=== PATIENT | female | born 1940 | race Caucasian/White ===

== ENCOUNTER 2022-01-04 20:17 | Emergency (ER) | payer MEDICARE ==
--- NOTE | 2022-01-04 20:56 | ERPHSYRPT ---
- History of Present Illness Time Seen by Provider: 01/04/22 20:45 Source: patient Exam Limitations: no limitations Patient Subjective Stated Complaint: Pt states "I have had a cough since the middle of last week but it has gotten better. It also [place] to pee and I am peei ng more than usual" Triage Nursing Assessment: Pt amubulatory to cot by self, pt c/o productive cough since last week as well as painful urination that started tuesday, lung sounds clear in lower lobes anteriorly and posteriorly, wheezes noted in upper lobes anteriorly and posteriorly, pt is afebrile, pt denies sob, chest pain, headache, n/v/d at this time, pt coughing up clear sputum in room Physician History: This is an 81-year-old white female who is a patient of Dr. Casillas. She has a history of hypertension and last week she noticed coughing episodes that were similar to the past when she has had walking pneumonia. She was coughing up yellowish sputum. That seemed to improve. Then, approximately 3 days ago she noticed some dysuria. She had fever last week but has not had any fever in the last few days. She has had no nausea or vomiting. She does not have chest pain. She has no abdominal pain. Timing/Duration: week(s) Cough Quality/Degree: mild, productive cough Possible Cause: occasional episodes Modifying Factors: Improves With: coughing Associated Symptoms: cough, No chest pain/soreness, No shortness of breath Allergies/Adverse Reactions: diphenhydramine [From Benadryl] Allergy (Verified 01/04/22 20:28) hydrocodone bitartrate [From Vicodin] Allergy (Verified 01/04/22 20:28) meperidine HCl [From Demerol] Allergy (Verified 01/04/22 20:28) Home Medications: Enalapril Maleate [Vasotec] 20 mg PO BID 10/25/12 [History] Furosemide 20 mg [Lasix 20 mg] 20 mg PO DAILY PRN PRN 10/25/12 [History] Metoprolol Succinate 50 mg [Toprol Xl 50 MG] 50 mg PO DAILY 10/25/12 [History] ALPRAZolam [Alprazolam] 0.5 mg PO DAILY 01/04/22 [History] Aspirin EC 81 mg [Ecotrin 81 mg] 81 mg PO DAILY 01/04/22 [History] Calcium Carbonate/Vitamin D3 [Calcium 600 mg-D3 10 Mcg Sfgl] 1 cap PO DAILY 01/04/22 [History] Clopidogrel Bisulfate [Clopidogrel] 75 mg PO DAILY 01/04/22 [History] Esomeprazole Magnesium 40 mg PO DAILY 01/04/22 [History] Hx Tetanus, Diphtheria Vaccination/Date Given: Yes Hx Influenza Vaccination/Date Given: No Hx Pneumococcal Vaccination/Date Given: No Immunizations Up to Date: Yes Travel Risk - International Travel Have you traveled outside of the country in past 3 weeks: No - Coronavirus Screening Are you exhibiting any of the following symptoms?: No Close contact with a COVID-19 positive Pt in past 14-21 Days: No - Vaccine Status Have you recieved a Covid-19 vaccination: Yes Conservation Scientist: Moderna - Vaccination Dates Date of 2cond Vaccination (if applicable): 03/27/2021 - Review of Systems Constitutional: No Symptoms Eyes: No Symptoms Ears, Nose, & Throat: No Symptoms Respiratory: Cough Cardiac: No Symptoms Abdominal/Gastrointestinal: No Symptoms Genitourinary Symptoms: Dysuria Musculoskeletal: No Symptoms Skin: No Symptoms Neurological: No Symptoms Psychological: No Symptoms Endocrine: No Symptoms Hematologic/Lymphatic: No Symptoms Immunological/Allergic: No Symptoms All Other Systems: Reviewed and Negative - Past Medical History Pertinent Past Medical History: Yes Neurological History: Stroke ENT History: No Pertinent History Cardiac History: Coronary Artery Disease, High Cholesterol, Hypertension Respiratory History: No Pertinent History Endocrine Medical History: No Pertinent History Musculoskeletal History: No Pertinent History GI Medical History: No Pertinent History History: No Pertinent History Psycho-Social History: No Pertinent History Female Reproductive Disorders: Breast Cancer - Past Surgical History Past Surgical History: Yes Cardiac: CABG Respiratory: No Pertinent History Gastrointestinal: Cholecystectomy Genitourinary: No Pertinent History Female Surgical History: Hysterectomy, Lumpectomy, Other Other Surgical History: lump removed from r breast - Social History Smoking Status: Never smoker Exposure to second hand smoke: No Drug Use: none Patient Lives Alone: Yes - Nursing Vital Signs Nursing Vital Signs: Initial Vital Signs Temperature 97.7 F 01/04/22 20:29 Pulse Rate 64 01/04/22 20:29 Respiratory Rate 16 01/04/22 20:29 Blood Pressure 176/70 01/04/22 20:29 O2 Sat by Pulse Oximetry 98 05/23/22 20:29 Pain Scale Pain Intensity 0 - Physical Exam General Appearance: no apparent distress, alert, anxiety Eye Exam: PERRL/EOMI, eyes nml inspection Ears, Nose, Throat Exam: normal ENT inspection, moist mucous membranes Neck Exam: normal inspection, non-tender, supple, full range of motion Respiratory Exam: normal breath sounds, lungs clear, airway intact, No chest tenderness, No respiratory distress Cardiovascular Exam: regular rate/rhythm, normal heart sounds, normal peripheral pulses Gastrointestinal/Abdomen Exam: soft, normal bowel sounds, No tenderness Pelvic Exam: not done Rectal Exam: not done Back Exam: normal inspection, normal range of motion, No CVA tenderness, No vertebral tenderness Extremity Exam: normal inspection, normal range of motion, pelvis stable Neurologic Exam: alert, oriented x 3, cooperative, cinder block mason II-XII nml as tested, normal mood/affect, nml cerebellar function, nml station & gait, sensation nml Skin Exam: normal color, warm, dry Lymphatic Exam: No adenopathy SpO2 Interpretation: normal SpO2: 98 O2 Delivery: Room Air Ordered Tests: Active Orders 24 hr Category Date Time Status CHEST 1 VIEW (PORTABLE) Stat Exams 01/04/22 20:57 Taken CULTURE,URINE Stat Lab 01/04/22 20:58 Received UA W/RFX CULTURE Stat Lab 01/04/22 20:58 Completed Medication Summary Discontinued Medications Generic Name Dose Route Start Last Admin Trade Name Jefferyq PRN Reason Stop Dose Admin Levofloxacin 500 mg 01/04/22 22:01 Levofloxacin 500 Mg Tablet PO 01/04/22 22:02 STAT ONE Lab/Rad Data: Laboratory Results 01/04/22 01/04/22 01/04/22 Range/Units 21:05 21:05 20:58 Urinalys Dipstick Clnc MAIN LAB Urine Color YELLOW (YELLOW) Urine Appearance CLOUDY (CLEAR) Urine pH 5.5 (5-6) Ur Specific [place] >=1.030 (1.005-1.025) POC Urine Protein Conf 100 (Negative) Urine Ketones NEGATIVE (NEGATIVE) Urine Nitrite NEGATIVE (NEGATIVE) Urine Bilirubin NEGATIVE (NEGATIVE) Urine Urobilinogen 0.2 (0-1) mg/dL Urine Leukocytes MODERATE (NEGATIVE) Urine WBC (Auto) >100 (0-5) /HPF Urine RBC (Auto) 26-50 (0-2) /HPF U Epithel Cells (Auto) PACKED (FEW) /HPF Urine Bacteria (Auto) FEW (NEGATIVE) /HPF Urine RBC MODERATE (0-5) [place]/ul Urine Mucus (Auto) SLIGHT (NEGATIVE) /HPF Ur Culture Indicated? YES Urine Glucose NEGATIVE (NEGATIVE) mg/dL Influenza Type A Ag NEGATIVE (NEGATIVE) Influenza Type B Ag NEGATIVE (NEGATIVE) RSV (PCR) NEGATIVE (Negative) SARS-CoV-2 (PCR) NEGATIVE (NEGATIVE) Group A Strep Antibody NOT DETECTED (NEGATIVE) - Progress Progress: unchanged Air Movement: good Progress Note: 01/04/22 21:59 Chest x-ray shows no acute cardiopulmonary process. Counseled pt/family regarding: lab results, diagnosis, need for follow-up, rad results - Departure Departure Disposition: Home Clinical Impression: UTI (urinary tract infection) Condition: Stable Critical Care Time: No Referrals: CLARICE CASILLAS MD [Primary Care Provider] - Follow up/PCP as directed Additional Instructions: Plenty of fluids. Take your medication as prescribed. Follow-up with your primary care physician for further management. Prescriptions: Cefdinir 300 mg PO BID #14 cap
[2022-01-04 21:20] VITALS: BP 129/79
[2022-01-04 21:25] LABS: Bacteria FEW /HPF (NEGATIVE); Epithelial Cells PACKED /HPF (FEW); Mucus SLIGHT /HPF (NEGATIVE); RBC 26-50 /HPF (0-2); WBC >100 /HPF (0-5)
[2022-01-04 21:28] LABS: Appearance CLOUDY (CLEAR); Bilirubin NEGATIVE (NEGATIVE); Glucose NEGATIVE (NEGATIVE); Ketones NEGATIVE (NEGATIVE); Nitrite NEGATIVE (NEGATIVE); Ph 5.5 (5-6); Protein,Urine Dip 100 (Negative); RBC MODERATE Ery/ul (0-5); Specific Gravity >=1.030 (1.005-1.025); Urobilinogen 0.2 mg/dL (0-1)
[2022-01-04 21:29] LABS: Urine Cultured Indicated? YES
[2022-01-04 21:32] LABS: Dipstick done @ ? MAIN LAB
[2022-01-04 21:49] LABS: INFLUENZA A NEGATIVE (NEGATIVE); INFLUENZA B NEGATIVE (NEGATIVE); RESPIRATORY SYNCTIAL VIRUS NEGATIVE (Negative); SARS-CoV-2 Xpert Express NEGATIVE (NEGATIVE)
[2022-01-04 22:01] VITALS: O2SAT 98
[2022-01-04 22:03] VITALS: PULSE 64
[2022-01-04] MEDS ORDERED: Levofloxacin 500 MG Tablet ONE (22:03)
[2022-01-04] MEDS: Levofloxacin 500 MG Tablet PO ONE (22:03)
--- NOTE | 2022-01-05 08:38 | XRAY ---
Indication: Cough and weakness. Comparison: October 25, 2012. Portable chest remains clear again with incidental tiny calcified granulomas. Heart not enlarged again with CABG. Bony thorax intact again with mild osteopenia and degenerative changes. Impression: Continued nonacute chest with chronic features.
== END 2022-01-04 22:15 | disposition home or self-care (01) ==
LOC: ED 20:17
DX: N39.0 Urinary tract infection, site not specified (principal); R30.0 Dysuria; R05.9 Cough, unspecified; E78.5 Hyperlipidemia, unspecified; I10 Essential (primary) hypertension; Z79.02 Long term (current) use of antithrombotics/antiplatelets; Z79.899 Other long term (current) drug therapy
CPT/HCPCS: 0241U; 71045; 81015; 87086; 87651; 99284; A9270-GY

== ENCOUNTER 2023-07-09 07:00 | Emergency (ER) | payer MEDICARE ==
[2023-07-09 07:09] VITALS: TEMP 97.8
--- NOTE | 2023-07-09 07:26 | ERPHSYRPT ---
- History of Present Illness Time Seen by Provider: 07/09/23 07:21 Source: patient, EMS Exam Limitations: no limitations Patient Subjective Stated Complaint: PT states "I have been coughing and spitting up stuff for four days." Triage Nursing Assessment: Pt presented alert and oriented X 3, skin pwd. PT ambulates with an upright steady gait, able to speak in full sentences. Pt voice raspy and congested. Physician History: This is an 82-year-old white female patient brought to the emergency department by paramedics secondary to 4 days of coughing day and night. The cough is productive. Patient is bringing up yellowish phlegm. Patient took home COVID test which was negative. However, she was exposed to her grandchild that tested positive for COVID 19 infection. Patient has a history of hypertension, CVA, hy perlipidemia and gastroesophageal reflux disease. Patient has mild shortness of breath with coughing spells. She denies chest pain. She has had no nausea vomiting or diarrhea symptoms. She has no abdominal pain. Patient's voice is raspy. And route to the hospital patient received 125 mg of intravenous Solu- Medrol and a nebulizer treatment. On arrival to the emergency department patient's room air oxygen saturation levels 98%. Timing/Duration: day(s) (4) Cough Quality/Degree: mild, productive cough (Yellowish sputum) Possible Cause: no prior episodes Modifying Factors: Improves With: coughing Associated Symptoms: cough, nasal congestion, shortness of breath, No fever, No chest pain/soreness, No headache, No muscle aches, No sore throat (With coughing) Allergies/Adverse Reactions: diphenhydramine [From Benadryl] Allergy (Verified 11/15/22 09:13) hydrocodone bitartrate [From Vicodin] Allergy (Verified 11/15/22 09:13) meperidine HCl [From Demerol] Allergy (Verified 11/15/22 09:13) Home Medications: Enalapril Maleate [Vasotec] 20 mg PO BID 10/25/12 [History] Furosemide 20 mg [Lasix 20 mg] 20 mg PO DAILY PRN PRN 10/25/12 [History] Metoprolol Succinate 50 mg [Toprol Xl 50 MG] 50 mg PO DAILY 10/25/12 [History] ALPRAZolam [Alprazolam] 0.5 mg PO DAILY 01/04/22 [History] Aspirin EC 81 mg [Ecotrin 81 mg] 81 mg PO DAILY 01/04/22 [History] Calcium Carbonate/Vitamin D3 [Calcium 600 mg-D3 10 Mcg Sfgl] 1 cap PO DAILY 01/04/22 [History] Clopidogrel Bisulfate [Clopidogrel] 75 mg PO DAILY 01/04/22 [History] Esomeprazole Magnesium 40 mg PO DAILY 01/04/22 [History] Hx Tetanus, Diphtheria Vaccination/Date Given: Yes Hx Influenza Vaccination/Date Given: No Hx Pneumococcal Vaccination/Date Given: No Immunizations Up to Date: No Travel Risk - International Travel Have you traveled outside of the country in past 3 weeks: No - Coronavirus Screening Are you exhibiting any of the following symptoms?: Yes Symptoms: Cough: New Onset - Vaccine Status Have you recieved a Covid-19 vaccination: Yes Crystalizer: Moderna - Vaccination Dates Date of 2cond Vaccination (if applicable): 03/27/2021 - Review of Systems Constitutional: No Symptoms Eyes: No Symptoms Ears, Nose, & Throat: No Symptoms Respiratory: Cough, Dyspnea (With coughing) Cardiac: No Symptoms Abdominal/Gastrointestinal: No Symptoms Genitourinary Symptoms: No Symptoms Musculoskeletal: No Symptoms Skin: No Symptoms Neurological: No Symptoms Psychological: No Symptoms Endocrine: No Symptoms Hematologic/Lymphatic: No Symptoms Immunological/Allergic: No Symptoms All Other Systems: Reviewed and Negative - Past Medical History Pertinent Past Medical History: Yes Neurological History: Stroke ENT History: No Pertinent History Cardiac History: Coronary Artery Disease, High Cholesterol, Hypertension Respiratory History: Sleep Apnea Endocrine Medical History: No Pertinent History Musculoskeletal History: No Pertinent History GI Medical History: GERD History: No Pertinent History Psycho-Social History: No Pertinent History Female Reproductive Disorders: Breast Cancer - Past Surgical History Past Surgical History: Yes Cardiac: CABG Respiratory: No Pertinent History Gastrointestinal: Cholecystectomy Genitourinary: No Pertinent History Female Surgical History: Hysterectomy, Lumpectomy, Other Other Surgical History: lump removed from r breast - Social History Smoking Status: Never smoker Exposure to second hand smoke: No Drug Use: none Patient Lives Alone: Yes - Nursing Vital Signs Nursing Vital Signs: Initial Vital Signs Temperature 97.8 F 07/09/23 07:03 Pulse Rate 106 H 07/09/23 07:03 Respiratory Rate 24 07/09/23 07:03 Blood Pressure 141/69 07/09/23 07:03 O2 Sat by Pulse Oximetry 98 07/09/23 07:03 Pain Scale Pain Intensity 4 - Physical Exam General Appearance: no apparent distress, alert, thin Eye Exam: PERRL/EOMI, eyes nml inspection Ears, Nose, Throat Exam: normal ENT inspection, moist mucous membranes Neck Exam: normal inspection, non-tender, supple, full range of motion Respiratory Exam: normal breath sounds, lungs clear, airway intact, No chest tenderness, No respiratory distress Cardiovascular Exam: regular rate/rhythm, normal heart sounds, normal peripheral pulses Gastrointestinal/Abdomen Exam: soft, normal bowel sounds, No tenderness Pelvic Exam: not done Rectal Exam: not done Back Exam: normal inspection, normal range of motion, No CVA tenderness, No vertebral tenderness Extremity Exam: normal inspection, normal range of motion, pelvis stable Neurologic Exam: alert, oriented x 3, cooperative, sandwich wrapper II-XII nml as tested, no rmal mood/affect, nml cerebellar function, nml station & gait, sensation nml Skin Exam: normal color, warm, dry Lymphatic Exam: No adenopathy SpO2 Interpretation: normal SpO2: 98 O2 Delivery: Room Air - Course Nursing assessment & vital signs reviewed: Yes EKG Interpreted by Me: RATE (97), Sinus Rhythm, NORMAL AXIS, NORMAL INTERVALS, NORMAL QRS, NORMAL ST-T, Other (No acute ischemic changes on today's twelve-lead EKG) Ordered Tests: Active Orders 24 hr Category Date Time Status EKG-ER Only STAT Care 07/09/23 07:28 Active Pulse Oximetry (ED) STAT Care 07/09/23 07:27 Active CHEST 1 VIEW (PORTABLE) Stat Exams 07/09/23 07:28 Completed BLOOD CULTURE Stat Lab 07/09/23 07:50 Received CBC W DIFF Stat Lab 07/09/23 07:27 Completed CMP Stat Lab 07/09/23 07:53 Completed MONO SCREEN Stat Lab 07/09/23 07:53 Completed NT PRO BNPII Stat Lab 07/09/23 07:53 Completed TROPONIN Q4H Lab 07/09/23 07:53 Completed TROPONIN Q4H Lab 07/09/23 11:30 Ordered TROPONIN Q4H Lab 07/09/23 15:30 Ordered Medication Summary Discontinued Medications Generic Name Dose Route Start Last Admin Trade Name Freq PRN Reason Stop Dose Admin Benzonatate 200 mg 07/09/23 07:29 07/09/23 07:35 Benzonatate 100 Mg Capsule PO 07/09/23 07:30 200 mg STAT ONE Administration Benzonatate Confirm 07/09/23 07:34 Benzonatate 100 Mg Capsule Administered 07/09/23 07:35 Dose 200 mg PO .STK-MED ONE Lab/Rad Data: Laboratory Result Diagrams 07/09/23 07:27 07/09/23 07:53 Laboratory Results 07/09/23 07/09/23 07/09/23 Range/Units 07:57 07:57 07:53 WBC (4.0-10.5) x10^3/uL RBC (4.1-5.4) x10^6/uL Hgb (12.0-16.0) g/dL Hct (35-47) % MCV (78-100) fL MCH (26-32) pg MCHC (32-36) g/dL RDW (11.5-14.0) % Plt Count (150-450) x10^3/uL MPV (7.5-11.0) fL Gran % (36.0-66.0) % Immature Gran % (Auto) (0.00-0.4) % Nucleat RBC Rel Count (0.00-0.1) % Eos # (Auto) (0-0.5) x10^3/uL Immature Gran # (Auto) (0.00-0.03) x10^3u/L Absolute Lymphs (auto) (1.0-4.6) x10^3/uL Absolute Monos (auto) (0.0-1.3) x10^3/uL Absolute Nucleated RBC (0.00-0.01) x10^3u/L Lymphocytes % (24.0-44.0) % Monocytes % (0.0-12.0) % Eosinophils % (0.00-5.0) % Basophils % (0.0-0.4) % Absolute Granulocytes (1.4-6.9) x10^3/uL Basophils # (0-0.4) x10^3/uL Sodium (137-145) mmol/L Potassium (3.5-5.1) mmol/L Chloride (98-107) mmol/L Carbon Dioxide (22-30) mmol/L Anion Gap (5-15) MEQ/L BUN (7-17) mg/dL Creatinine (0.52-1.04) mg/dL Estimated GFR ML/MIN Glucose (74-106) mg/dL Calcium (8.4-10.2) mg/dL Total Bilirubin (0.2-1.3) mg/dL AST (14-36) U/L ALT (0-35) U/L Alkaline Phosphatase (38-126) U/L Troponin I (0.000-0.034) ng/mL NT-Pro-B Natriuret Pep (<300) pg/mL Serum Total Protein (6.3-8.2) g/dL Albumin (3.5-5.0) g/dL Monoscreen NEGATIVE (NEGATIVE) Influenza Type A Ag NEGATIVE (NEGATIVE) Influenza Type B Ag NEGATIVE (NEGATIVE) RSV (PCR) NEGATIVE (NEGATIVE) SARS-CoV-2 (PCR) NEGATIVE (NEGATIVE) Group A Strep Antibody NOT DETECTED (NEGATIVE) 07/09/23 07/09/23 07/09/23 Range/Units 07:53 07:53 07:53 WBC (4.0-10.5) x10^3/uL RBC (4.1-5.4) x10^6/uL Hgb (12.0-16.0) g/dL Hct (35-47) % MCV (78-100) fL MCH (26-32) pg MCHC (32-36) g/dL RDW (11.5-14.0) % Plt Count (150-450) x10^3/uL MPV (7.5-11.0) fL Gran % (36.0-66.0) % Immature Gran % (Auto) (0.00-0.4) % Nucleat RBC Rel Count (0.00-0.1) % Eos # (Auto) (0-0.5) x10^3/uL Immature Gran # (Auto) (0.00-0.03) x10^3u/L Absolute Lymphs (auto) (1.0-4.6) x10^3/uL Absolute Monos (auto) (0.0-1.3) x10^3/uL Absolute Nucleated RBC (0.00-0.01) x10^3u/L Lymphocytes % (24.0-44.0) % Monocytes % (0.0-12.0) % Eosinophils % (0.00-5.0) % Basophils % (0.0-0.4) % Absolute Granulocytes (1.4-6.9) x10^3/uL Basophils # (0-0.4) x10^3/uL Sodium 135 L (137-145) mmol/L Potassium 3.4 L (3.5-5.1) mmol/L Chloride 103 (98-107) mmol/L Carbon Dioxide 23 (22-30) mmol/L Anion Gap 13.3 (5-15) MEQ/L BUN 19 H (7-17) mg/dL Creatinine 1.30 H (0.52-1.04) mg/dL Estimated GFR 40.8 ML/MIN Glucose 136 H (74-106) mg/dL Calcium 9.2 (8.4-10.2) mg/dL Total Bilirubin 0.80 (0.2-1.3) mg/dL AST 23 (14-36) U/L ALT 12 (0-35) U/L Alkaline Phosphatase 84 (38-126) U/L Troponin I < 0.012 (0.000-0.034) ng/mL NT-Pro-B Natriuret Pep 661 (<300) pg/mL Serum Total Protein 7.2 (6.3-8.2) g/dL Albumin 3.9 (3.5-5.0) g/dL Monoscreen (NEGATIVE) Influenza Type A Ag (NEGATIVE) Influenza Type B Ag (NEGATIVE) RSV (PCR) (NEGATIVE) SARS-CoV-2 (PCR) (NEGATIVE) Group A Strep Antibody (NEGATIVE) 07/09/23 Range/Units 07:27 WBC 5.8 (4.0-10.5) x10^3/uL RBC 4.04 L (4.1-5.4) x10^6/uL Hgb 12.7 (12.0-16.0) g/dL Hct 39.4 (35-47) % MCV 97.5 (78-100) fL MCH 31.4 (26-32) pg MCHC 32.2 (32-36) g/dL RDW 12.2 (11.5-14.0) % Plt Count 160 (150-450) x10^3/uL MPV 9.1 (7.5-11.0) fL Gran % 75.4 H (36.0-66.0) % Immature Gran % (Auto) 0.5 H (0.00-0.4) % Nucleat RBC Rel Count 0.0 (0.00-0.1) % Eos # (Auto) 0.09 (0-0.5) x10^3/uL Immature Gran # (Auto) 0.03 (0.00-0.03) x10^3u/L Absolute Lymphs (auto) 0.82 L (1.0-4.6) x10^3/uL Absolute Monos (auto) 0.45 (0.0-1.3) x10^3/uL Absolute Nucleated RBC 0.00 (0.00-0.01) x10^3u/L Lymphocytes % 14.2 L (24.0-44.0) % Monocytes % 7.8 (0.0-12.0) % Eosinophils % 1.6 (0.00-5.0) % Basophils % 0.5 (0.0-0.4) % Absolute Granulocytes 4.34 (1.4-6.9) x10^3/uL Basophils # 0.03 (0-0.4) x10^3/uL Sodium (137-145) mmol/L Potassium (3.5-5.1) mmol/L Chloride (98-107) mmol/L Carbon Dioxide (22-30) mmol/L Anion Gap (5-15) MEQ/L BUN (7-17) mg/dL Creatinine (0.52-1.04) mg/dL Estimated GFR ML/MIN Glucose (74-106) mg/dL Calcium (8.4-10.2) mg/dL Total Bilirubin (0.2-1.3) mg/dL AST (14-36) U/L ALT (0-35) U/L Alkaline Phosphatase (38-126) U/L Troponin I (0.000-0.034) ng/mL NT-Pro-B Natriuret Pep (<300) pg/mL Serum Total Protein (6.3-8.2) g/dL Albumin (3.5-5.0) g/dL Monoscreen (NEGATIVE) Influenza Type A Ag (NEGATIVE) Influenza Type B Ag (NEGATIVE) RSV (PCR) (NEGATIVE) SARS-CoV-2 (PCR) (NEGATIVE) Group A Strep Antibody (NEGATIVE) - Progress Progress: improved, re-examined Air Movement: good Progress Note: 07/09/23 07:26 This patient's medical issue is 1 of moderate complexity. The level complex in the workup performed based on review the patient's past medical history, review of patient's medication list, reviewed patient's drug allergy list, history present illness and physical findings on examination. The workup in this patient includes placement of intravenous line, chest x-ray, twelve-lead EKG, BNP, COVID and other viral swabs, group A strep test and troponin level. We will also provide the patient with Vivi Hidalgo. 07/09/23 08:00 Chest x-ray was interpreted by radiologist and I reviewed the impression. The chest x-ray impression states nonacute chest x-ray with chronic features. 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 - Social Determinants of Health Limited access to: transportation - Diagnostic Testing Diagnostic test were ordered, analyzed, and reviewed by me: Yes Radiological Interpretation: Reviewed by me, Teleradiologist Report - Risk of complications The pt has a mod risk of morbidity or mortality based on: Need for prescription drug management - Departure Departure Disposition: Home Clinical Impression: URI (upper respiratory infection) Condition: Stable Critical Care Time: No Referrals: CLARICE CASILLAS MD [Primary Care Provider] - Follow up/PCP as directed Additional Instructions: Drink plenty of clear liquids. Take your medication as prescribed. Call your primary care physician on 07/11/2023, to make arranges for follow-up appointment further evaluation next 3 to 5 days. Prescriptions: Benzonatate 200 mg PO TID PRN #10 cap PRN Reason: Cough Prednisone 10 mg [Deltasone 10 mg] 10 mg PO TID #12 tablet Albuterol 8 gm Mdi Hfa [Ventolin Hfa MDI] 8 gm IH Q4H #1 unit Azithromycin 250 mg [Zithromax 250 MG TABLET] 250 mg PO ZPACK #6 tablet
[2023-07-09] MEDS ORDERED: Tessalon Perles 100 MG PO ONE ×2 (07:29→07:34)
--- NOTE | 2023-07-09 07:55 | XRAY ---
Indication: Productive cough. Comparison: January 04, 2022 Portable chest again hyperinflated with incidental tiny left base calcified granuloma. No focal infiltrate, consolidation, or large effusion. Heart not enlarged again with CABG and left hilar calcified nodes. Bony thorax intact again with osteopenia and mild degenerative changes. Impression: Continued nonacute chest with chronic features.
[2023-07-09 08:02] LABS: Absolute Neutrophil Ct (ANC) 4.34 x10^3/uL (1.4-6.9); BASOPHIL % 0.5 % (0.0-0.4); Basophil (Absolute #) 0.03 x10^3/uL (0-0.4); Eosinophil % 1.6 % (0.00-5.0); Eosinophil (Absolute #) 0.09 x10^3/uL (0-0.5); Hematocrit 39.4 % (35-47); Hemoglobin 12.7 g/dL (12.0-16.0); IMMATURE GRAN # 0.03 x10^3u/L (0.00-0.03); IMMATURE GRAN % 0.5 % (0.00-0.4); Lymphocyte (Absolute #) 0.82 x10^3/uL (1.0-4.6); Lymphocytes % 14.2 % (24.0-44.0); Mean Cell Volume 97.5 fL (78-100); Mean Corpuscular Hemoglobin 31.4 pg (26-32); Mean Corpuscular Hgb Concent. 32.2 g/dL (32-36); Mean Platelet Volume 9.1 fL (7.5-11.0); Monocyte (Absolute #) 0.45 x10^3/uL (0.0-1.3); Monocytes % 7.8 % (0.0-12.0); Neutrophil % 75.4 % (36.0-66.0); Platelet Count 160 x10^3/uL (150-450); Red Blood Count 4.04 x10^6/uL (4.1-5.4); Red Cell Distribution Width 12.2 % (11.5-14.0); White Blood Count 5.8 x10^3/uL (4.0-10.5)
[2023-07-09 08:15] LABS: ALBUMIN 3.9 g/dL (3.5-5.0); ANION GAP 13.3 MEQ/L (5-15); BILIRUBIN,TOTAL 0.8 mg/dL (0.2-1.3); Calcium 9.2 mg/dL (8.4-10.2); Creatinine 1 1.3 mg/dL (0.52-1.04); EST GLOMERULAR FILTRATION RATE 40.8 ML/MIN; Potassium 3.4 mmol/L (3.5-5.1); Total Protein 7.2 g/dL (6.3-8.2)
[2023-07-09 08:39] LABS: INFLUENZA A NEGATIVE (NEGATIVE); INFLUENZA B NEGATIVE (NEGATIVE); RESPIRATORY SYNCTIAL VIRUS NEGATIVE (NEGATIVE); SARS-CoV-2 Xpert Express NEGATIVE (NEGATIVE)
[2023-07-09 09:52] VITALS: BP 152/69; PULSE 70; RESP 18; O2SAT 96
== END 2023-07-09 10:00 | disposition home or self-care (01) ==
LOC: ED 07:00
DX: J06.9 Acute upper respiratory infection, unspecified (principal); R05.1 Acute cough; I10 Essential (primary) hypertension; E78.5 Hyperlipidemia, unspecified; Z79.52 Long term (current) use of systemic steroids; Z79.02 Long term (current) use of antithrombotics/antiplatelets; Z79.899 Other long term (current) drug therapy; Z59.82 Transportation insecurity
CPT/HCPCS: 0241U; 36415; 71045; 80053; 83880; 84484; 85025; 86308; 87040; 87651; 93005; 94760; 99284; A9270-GY

== ENCOUNTER 2023-08-17 19:34 | Observation (INO) | payer MEDICARE ==
--- NOTE | 2023-08-17 19:44 | ERPHSYRPT ---
- History of Present Illness Time Seen by Provider: 08/17/23 19:43 Source: patient, EMS Exam Limitations: no limitations Physician History: This is an 82-year-old white female patient of Dr. Casillas who was brought into the emergency department by the paramedics secondary to fall injury. Patient was walking the sidewalk when her arm slipped off the railing and she fell face first onto the ground. Patient lost her balance after her arm slipped holding her up. Patient did not lose consciousness. This occurred approximately 4 hours prior to arrival. Patient states her tetanus status is up-to-date. Patient is on Plavix. Patient denies chest pain. Patient denies shortness of breath. Patient denies visual changes. Patient has an abrasion on her nasal bridge and left elbow and bilateral hands. Patient has a history of hypertension, gastroesophageal reflux disease, coronary disease (CABG). Patient has no abdominal pain. She has no pain or injuries to her legs. She has no back pain. However she does have pain in her left hip. Occurred: hours ago (4 hours prior to arrival) Reason for Fall: lost balance, slipped Injuries/Pain Location: head, face, upper extremity (Left shoulder and left elbow), lower extremity (Left hip) Loss of Consciousness: no loss of consciousness Quality: aching Severity of Pain-Max: mild (To moderate) Severity of Pain-Current: mild (To moderate) Modifying Factors: Improves With: movement Associated Symptoms (Fall): extremity injury (Left hip, left elbow and left shoulder), No abdominal pain, No back pain, No confusion, No chest pain, No dizziness, No neck pain, No shortness of breath, No slurred speech, No vision changes Allergies/Adverse Reactions: diphenhydramine [From Benadryl] Allergy (Verified 11/15/22 09:13) hydrocodone bitartrate [From Vicodin] Allergy (Verified 11/15/22 09:13) meperidine HCl [From Demerol] Allergy (Verified 11/15/22 09:13) Home Medications: Enalapril Maleate [Vasotec] 10 mg PO DAILY 10/25/12 [History] Metoprolol Succinate 50 mg [Toprol Xl 50 MG] 50 mg PO DAILY 10/25/12 [History] Clopidogrel Bisulfate [Clopidogrel] 75 mg PO DAILY 01/04/22 [History] Esomeprazole Magnesium 40 mg PO DAILY 01/04/22 [History] ALPRAZolam [Alprazolam] 0.5 mg PO HS 08/17/23 [History] Meloxicam 7.5 mg PO BID PRN 08/17/23 [History] Hx Tetanus, Diphtheria Vaccination/Date Given: Yes Hx Influenza Vaccination/Date Given: No Hx Pneumococcal Vaccination/Date Given: No Travel Risk - International Travel Have you traveled outside of the country in past 3 weeks: No - Coronavirus Screening Are you exhibiting any of the following symptoms?: No Close contact with a COVID-19 positive Pt in past 14-21 Days: No - Vaccine Status Have you recieved a Covid-19 vaccination: Yes 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 Central forehead hematoma. Abrasion left elbow and bilateral hands) Neurological: No Symptoms Psychological: No Symptoms Endocrine: No Symptoms Hematologic/Lymphatic: No Symptoms Immunological/Allergic: No Symptoms All Other Systems: Reviewed and Negative - Past Medical History Pertinent Past Medical History: Yes Neurological History: Stroke ENT History: No Pertinent History Cardiac History: Coronary Artery Disease, High Cholesterol, Hypertension Respiratory History: Sleep Apnea Endocrine Medical History: No Pertinent History Musculoskeletal History: No Pertinent History GI Medical History: GERD History: No Pertinent History Psycho-Social History: No Pertinent History Female Reproductive Disorders: Breast Cancer - Past Surgical History Past Surgical History: Yes Cardiac: CABG Respiratory: No Pertinent History Gastrointestinal: Cholecystectomy Genitourinary: No Pertinent History Female Surgical History: Hysterectomy, Lumpectomy, Other Other Surgical History: lump removed from r breast - Social History Smoking Status: Never smoker Exposure to second hand smoke: No Drug Use: none Patient Lives Alone: Yes - Nursing Vital Signs Nursing Vital Signs: Initial Vital Signs Temperature 99.4 F 08/17/23 19:34 Pulse Rate 85 08/17/23 19:34 Respiratory Rate 18 08/17/23 19:34 Blood Pressure 181/82 08/17/23 19:34 O2 Sat by Pulse Oximetry 97 08/17/23 19:34 Pain Scale Pain Intensity 0 - Vera Coma Score Best Eye Response ([place]): (4) open spontaneously Best Verbal Response ([place]): (5) oriented Best Motor Response ([place]): (6) obeys commands Vera Total: 15 - Physical Exam General Appearance: no apparent distress, alert Head Injury: swelling (Central forehead), tenderness (Central forehead and mild abrasion nasal bridge) Eye Exam: PERRL/EOMI, eyes nml inspection ENT Exam: airway nml, nml ext.inspection, No evidence of ENT injury Neck Exam: supple, trachea midline, full range of motion, normal alignment, normal inspection Respiratory/Chest Exam: normal breath sounds, No chest tenderness, No respiratory distress, No ecchymosis, No crepitus Cardiovascular Exam: normal heart sounds, regular rate/rhythm Gastrointestinal Exam: soft, normal bowel sounds, No tenderness Rectal Exam: not done Back Exam: normal inspection, normal range of motion, No CVA tenderness, No vertebral tenderness Extremity Exam: normal range of motion, hip tenderness (Left), tenderness (In the area of abrasion left elbow bilateral hands. 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, normal mood/affect, sensation nml Skin Exam: normal color, warm, dry, abrasion SpO2 Interpretation: normal O2 Delivery: Room Air - Course Nursing assessment & vital signs reviewed: Yes Ordered Tests: Active Orders 24 hr Category Date Time Status CERVICAL SPINE WO CONTRAST [CT] Stat Exams 08/17/23 19:44 Taken HEAD WITHOUT CONTRAST [CT] Stat Exams 08/17/23 19:44 Taken PELVIS WITHOUT CONTRAST [CT] Routine Exams 08/17/23 20:25 Taken SHOULDER Stat Exams 08/17/23 19:44 Taken - Progress Progress: improved, pain not gone completely, re-examined Progress Note: 08/17/23 20:32 This patient's medical issue is 1 of low to moderate complexity. The level complex in the workup performed based on review of the patient's past medical history, review the patient's medication list, review the patient's drug allergy list, history present illness and physical findings on examination. Workup in this patient includes CT scan of the head, CT scan of the neck, x-ray of the l eft shoulder left elbow and CT scan of the pelvis and hips bilaterally. 08/17/23 21:56 Despite the patient's painful left elbow, patient is refusing x-ray of the left elbow. 08/17/23 22:01 The x-ray of the left shoulder was interpreted by me. There is no evidence of any acute fracture or dislocation. The following CT scans were interpreted by the radiologist and I reviewed the impression: CT scan of the head without contrast shows frontal scalp hematoma. Otherwise continued nonacute senile brain with remote right basal ganglia lacunar infarcts. CT scan of the cervical spine without contrast shows worsening C4-6 degenerative disc disease. Negative for fracture or subluxation. CT scan of the pelvis without contrast shows osteopenia and mild bilateral hip degenerative joint disease. Negative for acute fracture or dislocation. 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 Apply ice to tender areas 3 times a day for the next 48 hours. Keep the abrasion sites clean daily with soap and water and may apply antibiotic ointment of choice to each region site after each washing.
[2023-08-18] MEDS ORDERED: TYLENOL 325 MG PO PRN (02:05)
[2023-08-18] MEDS ORDERED: ZOFRAN ODT 4 MG PO PRN (02:05)
[2023-08-18] MEDS ORDERED: Zofran 4 MG/2 ML VIAL IV PRN (03:10)
[2023-08-18] MEDS ORDERED: Docusate Sodium 100 MG PO PRN (03:10)
[2023-08-18] MEDS ORDERED: MELOXICAM PO PRN (03:11)
--- NOTE | 2023-08-18 03:20 | PCM.HP ---
History of Present Illness - Chief Complaint Chief Complaint: Status post fall Date: 08/18/23 History of Present Illness: is a 82 year old female with a history of remote [place]/CABG/CVA (on Plavix; followed with Dr. Villafuerte) who was brought into the emergency department by the paramedics after a fall injury approximately 4 hours prior to arrival in the ED. The patient had been walking the sidewalk when her arm slipped off the railing and she fell face first onto the ground. There was no loss of consciousness, visual changes, weakness or numbness. The patient lives alone in an apartment and does not require any assistance with ambulation. Pain is not a prominent complaint but she did report left hip discomfort in the ED. In the ED, the patient was noted to have an abrasion on her nasal bridge, left elbow, bilateral hands and right knee. She was also noted to have a forehead hematoma. In the ED, she authorized several radiographs that had been ordered, but then requested others to not be completed due to her discomfort during positioning for the radiographs. She also stated that she could not safely ambulate. Due to the incomplete radiographic workup to rule out occult trauma, and due to the inability to ambulate, the patient has been admitted. - Review of Systems Constitutional: No Symptoms Eyes: No Symptoms Ears, Nose, & Throat: No Symptoms Respiratory: No Symptoms Cardiac: No Symptoms Abdominal/Gastrointestinal: No Symptoms Genitourinary Symptoms: No Symptoms Musculoskeletal: Arthralgias, Fall, Injury Neurological: No Symptoms Psychological: No Symptoms Endocrine: No Symptoms Hematologic/Lymphatic: No Symptoms Immunological/Allergic: No Symptoms All Other Systems: Reviewed and Negative Medications & Allergies Home Medications: Home Medication List Enalapril Maleate [Vasotec] 10 mg PO DAILY 10/25/12 [History Confirmed 08/18/23] Metoprolol Succinate 50 mg [Toprol Xl 50 MG] 50 mg PO DAILY 10/25/12 [History Confirmed 08/18/23] Clopidogrel Bisulfate [Clopidogrel] 75 mg PO DAILY 01/04/22 [History Confirmed 08/18/23] Esomeprazole Magnesium 40 mg PO DAILY 01/04/22 [History Confirmed 08/18/23] ALPRAZolam [Alprazolam] 0.5 mg PO HS 08/17/23 [History Confirmed 08/18/23] Meloxicam 7.5 mg PO BID PRN 08/17/23 [History Confirmed 08/18/23] Allergies/Adverse Reactions: Allergies Allergy/AdvReac Type Severity Reaction Status Date / Time diphenhydramine Allergy Verified 08/18/23 02:36 [From Benadryl] hydrocodone bitartrate Allergy Verified 08/18/23 02:36 [From Vicodin] meperidine HCl [From Demerol] Allergy Verified 08/18/23 02:36 - Past Medical History Past Medical History: Yes Neurological History: Stroke ENT History: No Pertinent History Cardiac History: Coronary Artery Disease, High Cholesterol, Hypertension Respiratory History: Sleep Apnea Endocrine Medical History: No Pertinent History Musculoskelatal History: No Pertinent History GI Medical History: GERD History: No Pertinent History Pyscho-Social History: No Pertinent History Reproductive Disorders: Breast Cancer - Female History Are you now?: No - Past Surgical History Past Surgical History: Yes Neuro Surgical History: No Pertinent History Cardiac History: CABG Respiratory Surgery: No Pertinent History GI Surgical History: Cholecystectomy Genitourinary Surgical Hx: No Pertinent History Musculskeletal Surgical Hx: No Pertinent History Female Surgical History: Hysterectomy, Lumpectomy, Other Other Surgical History: lump removed from r breast - Social History Smoking Status: Never smoker Exposure to second hand smoke: No Alcohol: None Drug Use: none - Physical Exam Vital Signs: Vital Signs - 24 hr Temp Pulse Resp BP BP Pulse Ox 08/18/23 02:11 99.1 F 73 16 139/63 93 L 08/18/23 01:49 74 16 108/45 93 L 08/17/23 22:30 136/76 08/17/23 22:00 80 16 141/66 93 L 08/17/23 21:30 76 116/72 95 08/17/23 20:54 82 151/64 97 08/17/23 20:53 95 08/17/23 19:34 99.4 F 85 18 181/82 97 General Appearance: no apparent distress, alert Neurologic Exam: alert, oriented x 3, 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, 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, normal mood/affect, nml cerebellar function Eye Exam: PERRL/EOMI, eyes nml inspection Ears, Nose, Throat Exam: normal ENT inspection Neck Exam: normal inspection, non-tender, supple, full range of motion Respiratory Exam: normal breath sounds, lungs clear Cardiovascular Exam: regular rate/rhythm, normal heart sounds Gastrointestinal/Abdomen Exam: soft, normal bowel sounds Back Exam: normal range of motion Extremity Exam: normal inspection, normal range of motion Skin Exam: normal color, abrasion (abrasion noted on right knee and bilateral hands, nasal bridge, and left elbow), other (forehead hematoma noted) Results - Radiology Impressions Radiology Exams & Impressions: Radiology Procedures Category Date Time Status CERVICAL SPINE WO CONTRAST [CT] Stat Exams 08/17/23 19:44 Taken ELBOW (MINIMUM 3 VIEWS) Stat Exams 08/18/23 08:00 Ordered FACIAL BONES WO CONTRAST [CT] Stat Exams 08/18/23 08:00 Ordered FEMUR Routine Exams 08/18/23 08:00 Ordered FEMUR Stat Exams 08/18/23 08:00 Ordered HEAD WITHOUT CONTRAST [CT] Stat Exams 08/17/23 19:44 Taken HUMERUS Stat Exams 08/18/23 08:00 Ordered PELVIS WITHOUT CONTRAST [CT] Routine Exams 08/17/23 20:25 Taken SHOULDER Stat Exams 08/17/23 19:44 Taken Assessment/Plan (1) Traumatic hematoma of forehead Current Visit: Yes Status: Acute Assessment & Plan: Will plan on holding Plavix for 48 hours, per Dr. Lopez's recommendation to the patient. Code(s): S00.83XA - CONTUSION OF OTHER PART OF HEAD, INITIAL ENCOUNTER (2) Fall with no significant injury Current Visit: Yes Status: Acute Assessment & Plan: Will complete imaging workup in the morning to rule out occult injury. Also will request PT/OT eval to assess safety and ADL/IADL needs. CM consult for discharge planning (patient lives alone in apartment). Code(s): W19.XXXA - UNSPECIFIED FALL, INITIAL ENCOUNTER (3) Abrasions of multiple sites Current Visit: Yes Status: Acute Assessment & Plan: Skin care. Code(s): T07.XXXA - UNSPECIFIED MULTIPLE INJURIES, INITIAL ENCOUNTER Telemedicine Encounter - Telemedicine Encounter Telemedicine Encounter: The entirety of this encounter was performed via Telemedicine"
[2023-08-18 08:01] LABS: Hematocrit 35.5 % (35-47); Hemoglobin 11.6 g/dL (12.0-16.0); Mean Corpuscular Hemoglobin 31.7 pg (26-32); Mean Corpuscular Hgb Concent. 32.7 g/dL (32-36); Platelet Count 119 x10^3/uL (150-450); Red Blood Count 3.66 x10^6/uL (4.1-5.4); Red Cell Distribution Width 13.2 % (11.5-14.0); White Blood Count 5.8 x10^3/uL (4.0-10.5)
[2023-08-18 08:23] LABS: ALBUMIN 3.4 g/dL (3.5-5.0); ANION GAP 9.1 MEQ/L (5-15); BILIRUBIN,TOTAL 1.3 mg/dL (0.2-1.3); Calcium 8.9 mg/dL (8.4-10.2); Creatinine 1 1.19 mg/dL (0.52-1.04); EST GLOMERULAR FILTRATION RATE 45.4 ML/MIN; Potassium 3.7 mmol/L (3.5-5.1); Total Protein 6.1 g/dL (6.3-8.2)
--- NOTE | 2023-08-18 08:34 | XRAY ---
Indication: Pain following fall. Multiple contiguous axial images obtained through the head without contrast. Comparison: October 25, 2012 Again age-appropriate global atrophy, mild periventricular degenerative micro-ischemia bilaterally, and small remote infarcts right caudate head/right basal ganglia. No acute and coronal hemorrhage, abnormal extra-axial fluid collection, or mass effect. Fourth ventricle is midline without hydrocephalus. New left frontal scalp hematoma. Bony calvarium intact. Visualized paranasal sinuses and mastoid air cells are clear. Impression: 1. New left frontal scalp hematoma. No underlying fracture or acute intracranial hemorrhage. 2. Continued nonacute senile brain with again small remote infarct right caudate head/right basal ganglia.
--- NOTE | 2023-08-18 08:38 | XRAY ---
Indication: Pain following fall. Multiple contiguous axial images obtained through the cervical spine. Sagittal and coronal reformatted images obtained. Comparison: November 17, 2010 CT head reported separately. Osseous structures remain demineralized. Axial images negative for acute fracture, suspicious bony lesions, or spinal canal stenosis. Worsening C4-C6 degenerative disc bulge. New mild multilevel bilateral degenerative facet hypertrophy. Sagittal and coronal reformatted images again demonstrates normal cervical alignment. Worsening C5-C6 disc space narrowing. No acute compression fracture, subluxation, or jumped facet. Normal appearing craniocervical junction. Visualized noncontrasted soft tissues now demonstrates mild bilateral carotid calcifications. Lung apices clear. Impression: 1. Negative acute fracture/subluxation. 2. Chronic findings including osteopenia, multilevel degenerative changes, and bilateral carotid calcifications.
--- NOTE | 2023-08-18 08:40 | XRAY ---
Indication: Pain following fall. Comparison: None 3 view left shoulder demonstrates osteopenia, mild AC degenerative arthropathy, left lung calcified granulomas, cardiac pacer leads, and sternotomy wires. No other bony, articular, or soft tissue abnormalities.
--- NOTE | 2023-08-18 08:42 | XRAY ---
Indication: Pain following fall. Multiple contiguous axial images obtained through the pelvis with special attention to the osseous structures. Sagittal and coronal reformatted images obtained. Comparison: None Osseous structures demineralized. No acute fracture, dislocation, or suspicious bony lesions. Mild degenerative changes visualized lower lumbar spine and mild degenerative changes both hips. Visualized noncontrasted soft tissues demonstrates mild scattered arteriosclerotic calcifications. No suspicious solid/cystic soft tissue mass or abnormal fluid collection. Impression: Negative acute fracture/dislocation. Osteopenia and degenerative changes.
[2023-08-18] MEDS: Vasotec 10 MG PO SCH (09:04)
[2023-08-18] MEDS: Protonix 40MG Tablet PO SCH (09:04)
[2023-08-18] MEDS: Toprol Xl 50 MG PO SCH (09:04)
--- NOTE | 2023-08-18 09:34 | XRAY ---
Indication: Pain following fall. Comparison: None 2 view left femur demonstrates osteopenia and mild scattered vascular calcifications. No other bony, articular, or soft tissue abnormalities.
--- NOTE | 2023-08-18 09:34 | XRAY ---
Indication: Pain following fall. Comparison: None 3 view left elbow demonstrates osteopenia. No other bony, articular, or soft tissue abnormalities.
--- NOTE | 2023-08-18 09:34 | XRAY ---
Indication: Pain following fall. Comparison: None 2 view left humerus demonstrates mild inferior humeral head subluxation. Elsewhere osteopenia and mild AC degenerative changes. No other bony, articular, or soft tissue abnormalities.
--- NOTE | 2023-08-18 09:36 | XRAY ---
Indication: Pain following fall. Comparison: None 2 view right femur demonstrates osteopenia, mild scattered vascular calcifications, and numerous posterior medial vascular clips. No other bony, articular, or soft tissue abnormalities.
--- NOTE | 2023-08-18 09:38 | XRAY ---
Indication: Bruising and swelling following fall. Multiple contiguous axial images obtained through the facial bones. Sagittal and coronal reformatted images obtained. Comparison: None Frontal scalp soft tissue swelling/hematoma. Osseous structures demineralized. No acute fracture, suspicious bony lesions, or radiopaque foreign body. Orbits including roof, maya, and floors intact. Paranasal sinuses and nasal passages are clear. Mild nasal septal deviation to the right. Patient is edentulous. Mild degenerative changes both TMJ and visualized cervical spine. Visualized noncontrasted soft tissues including base of brain unremarkable. Impression: Frontal scalp soft tissue swelling/hematoma. CT facial bones negative for fracture. Incidental osteopenia, nasal septal deviation, and degenerative changes.
[2023-08-18] MEDS ORDERED: ENALAPRIL MALEATE 20 MG PO SCH (10:00)
[2023-08-18] MEDS ORDERED: NON-FORMULARY ITEM (Esomeprazole Magnesium [Esomeprazole Magnesium] 40 MG Suspdr.Pkt) PO SCH (10:00)
--- NOTE | 2023-08-18 10:47 | PCM.DS ---
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 Villafuerte) who was brought into the emergency department by the paramedics after a fall injury approximately 4 hours prior to arrival in the ED. The patient had been walking the sidewalk when her arm slipped off the railing and she fell face first onto the ground. There was no loss of consciousness, visual changes, weakness or numbness. The patient lives alone in an apartment and does not require any assistance with ambulation. She has an abrasion on her nasal bridge, left elbow, bilateral hands and right knee. She also has a forehead hematoma. In the ED, she authorized several radiographs that had been ordered, but then requested others to not be completed due to her discomfort during positioning for the radiographs. She also stated that she could not safely ambulate. Due to the incomplete radiographic workup to rule out occult trauma, and due to the inability to ambulate, the patient has been a dmitted. today she was agreeable to XR and CT's all which are negative. PT ws able to work with pt and she has some c/o of pain in LLE and LUE. She is willing to go to a rehab facilty if she qualifies if not she s willing to go home with [facility]. Case management is working on setting up one of these options. She denies any further c/o. - Vitals & Intake/Output Vital Signs: Vital Signs Temperature 96.8 F 08/18/23 07:39 Pulse Rate 68 08/18/23 07:39 Respiratory Rate 16 08/18/23 07:39 Blood Pressure 135/58 08/18/23 07:39 O2 Sat by Pulse Oximetry 96 08/18/23 07:39 Intake & Output: Intake & Output 08/15/23 08/16/23 08/17/23 08/18/23 11:59 11:59 11:59 11:59 Intake Total 240 Balance 240 Weight 54.5 kg - Lab Result Diagrams: 08/18/23 08:00 08/18/23 08:00 Lab Results-Last 24 Hrs: Lab Results-Last 24 Hours 08/18/23 08/18/23 Range/Units 08:00 08:00 WBC 5.8 (4.0-10.5) x10^3/uL RBC 3.66 L (4.1-5.4) x10^6/uL Hgb 11.6 L (12.0-16.0) g/dL Hct 35.5 (35-47) % MCV 97.0 (78-100) fL MCH 31.7 (26-32) pg MCHC 32.7 (32-36) g/dL RDW 13.2 (11.5-14.0) % Plt Count 119 L (150-450) x10^3/uL MPV 9.0 (7.5-11.0) fL Sodium 136 L (137-145) mmol/L Potassium 3.7 (3.5-5.1) mmol/L Chloride 107 (98-107) mmol/L Carbon Dioxide 24 (22-30) mmol/L Anion Gap 9.1 (5-15) MEQ/L BUN 15 (7-17) mg/dL Creatinine 1.19 H (0.52-1.04) mg/dL Estimated GFR 45.4 ML/MIN Glucose 91 (74-106) mg/dL Calcium 8.9 (8.4-10.2) mg/dL Total Bilirubin 1.30 (0.2-1.3) mg/dL AST 26 (14-36) U/L ALT 13 (0-35) U/L Alkaline Phosphatase 64 (38-126) U/L Serum Total Protein 6.1 L (6.3-8.2) g/dL Albumin 3.4 L (3.5-5.0) g/dL - Radiology Exams Ordered Rad Exams-Entire Visit: Radiology Procedures Category Date Time Status CERVICAL SPINE WO CONTRAST [CT] Stat Exams 08/17/23 19:44 Completed ELBOW (MINIMUM 3 VIEWS) Stat Exams 08/18/23 08:00 Completed FACIAL BONES WO CONTRAST [CT] Stat Exams 08/18/23 08:00 Completed FEMUR Routine Exams 08/18/23 08:00 Completed FEMUR Stat Exams 08/18/23 08:00 Completed HEAD WITHOUT CONTRAST [CT] Stat Exams 08/17/23 19:44 Completed HUMERUS Stat Exams 08/18/23 08:00 Completed KNEE (1 OR 2 VIEW) Urgent Exams 08/18/23 10:15 Ordered PELVIS WITHOUT CONTRAST [CT] Routine Exams 08/17/23 20:25 Completed SHOULDER Stat Exams 08/17/23 19:44 Completed - Procedures and Test Procedures and Tests throughout Hospitalization: Therapy Orders & Screens 08/18/23 02:05 PT Eval & Treat ( Order) ONCE Reason for Eval:: Range of motion, strengthening, balance Diagnosis: Status post fall 08/18/23 02:34 OT Screen per Nursing Assess ONCE Comment: Protocol Order Physician Instructions: Greater than 3 points order OT Admission Screening Reason For Exam: Triggered on Admission Diagnosis: Status post fall Open Wound/Cellutlitis/Pressure Ulcers: Yes Acute Fx/ORIF/Change in wt bearing status: Yes Severe MUSCULOSKELETAL pain: No ADL Dysfunction: Yes Acute CVA w/Hemiparesis/Hemiplegia: No Decreased Functional Mobility/Strength: Yes Sprain/Strain: No Acute Post-op Mobility Dysfunction: No Total Points: 14 PT Screen per Nursing Assess ONCE Comment: Protocol Order Physician Instructions: Greater than 3 points order PT Admission Screenin Reason For Exam: Triggered on Admission Diagnosis: Status post fall Open Wound/Cellutlitis/Pressure Ulcers: Yes Acute Fx/ORIF/Change in wt bearing status: Yes Severe MUSCULOSKELETAL pain: No ADL Dysfunction: Yes Acute CVA w/Hemiparesis/Hemiplegia: No Decreased Functional Mobility/Strength: Yes Sprain/Strain: No Acute Post-op Mobility Dysfunction: No Total Points: 14 08/18/23 03:10 OT Eval and Treat ( Order) ONCE Comment: Physician Instructions: Reason For Exam: Diagnosis: Status post fall Discharge Exam General Appearance: no apparent distress, alert Neurologic Exam: alert, oriented x 3, cooperative, normal mood/affect, nml cerebellar function, sensation nml, No motor deficits Eye Exam: PERRL, EOMI, eyes nml inspection Ears, Nose, Throat Exam: normal ENT inspection, pharynx normal, moist mucous membranes Neck Exam: normal inspection, non-tender, supple, full range of motion Respiratory Exam: normal breath sounds, lungs clear, No respiratory distress Cardiovascular Exam: regular rate/rhythm, normal heart sounds Gastrointestinal/Abdomen Exam: soft, No tenderness, No mass Pelvic Exam: deferred Rectal Exam: deferred Back Exam: normal inspection, normal range of motion, No CVA tenderness, No vertebral tenderness Extremity Exam: normal inspection, normal range of motion, tenderness, other ( Pt reports pain of LLE and left upper arm.) Skin Exam: normal color, warm, dry, other (She has an abrasion on her nasal bridge, left elbow, bilateral hands and right knee.BL raccoon eyes, forehead edema and redness with abrasion.) Wound Assessment: Skin/Wound Assessment Wound/Incision Assessment Start: 08/18/23 02: 34 Text: Status: Active Freq: Q6H Protocol: Document 08/18/23 08:34 AR (Rec: 08/18/23 09:09 AR [id number]) Wound/Incision Assessment Left Elbow Wound Assessment Shift Assessment Wound Type Abrasion Wound Stage Non Pressure Wound Drainage Amount None General Appearance Open to air Face Wound Assessment Shift Assessment Wound Stage Non Pressure Wound Drainage Amount None General Appearance Open to air,Clean/Dry Medial Head Wound Assessment Shift Assessment Wound Type Abrasion Wound Stage Non Pressure Wound Drainage Amount None General Appearance Open to air,Clean/Dry - Discharge Discharge Date: 08/18/23 Disposition: Home, Self-Care Condition: Stable Prescriptions: Continue Metoprolol Succinate 50 mg [Toprol Xl 50 MG] 50 mg PO DAILY Enalapril Maleate [Vasotec] 10 mg PO DAILY Clopidogrel Bisulfate [Clopidogrel] 75 mg PO DAILY Esomeprazole Magnesium 40 mg PO DAILY ALPRAZolam [Alprazolam] 0.5 mg PO HS Meloxicam 7.5 mg PO BID PRN PRN Reason: Pain Follow up with: CLARICE CASILLAS MD [Primary Care Provider] - 08/25/23 9:45 am
--- NOTE | 2023-08-18 10:56 | XRAY ---
Indication: Pain. Comparison: None AP/crosstable lateral left knee demonstrates osteopenia, faint medial/lateral knee joint degenerative chondrocalcinosis, tiny suprapatella spurring, and mild scattered vascular calcifications. No other bony, articular, or soft tissue abnormalities.
[2023-08-18] MEDS ORDERED: xanAX 0.5 MG PO SCH (22:00)
[2023-08-19 04:43] VITALS: PULSE 69
[2023-08-19 05:13] LABS: Hematocrit 37.3 % (35-47); Hemoglobin 12.1 g/dL (12.0-16.0); Mean Cell Volume 97.9 fL (78-100); Mean Corpuscular Hemoglobin 31.8 pg (26-32); Mean Corpuscular Hgb Concent. 32.4 g/dL (32-36); Mean Platelet Volume 9.6 fL (7.5-11.0); Platelet Count 123 x10^3/uL (150-450); Red Blood Count 3.81 x10^6/uL (4.1-5.4); Red Cell Distribution Width 13.4 % (11.5-14.0); White Blood Count 5.1 x10^3/uL (4.0-10.5)
[2023-08-19 05:43] LABS: ALBUMIN 3.5 g/dL (3.5-5.0); Creatinine 1 1.19 mg/dL (0.52-1.04); EST GLOMERULAR FILTRATION RATE 45.4 ML/MIN; Potassium 3.9 mmol/L (3.5-5.1); Total Protein 6.4 g/dL (6.3-8.2)
[2023-08-19 08:02] VITALS: RESP 16; O2SAT 95
[2023-08-19] MEDS: Vasotec 10 MG PO SCH (10:33)
[2023-08-19] MEDS: Protonix 40MG Tablet PO SCH (10:33)
[2023-08-19] MEDS: Toprol Xl 50 MG PO SCH (10:33)
--- NOTE | 2023-08-19 11:50 | PCM.DS ---
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 Villafuerte) who was brought into the emergency department by the paramedics after a fall injury approximately 4 hours prior to arrival in the ED. The patient had been walking the sidewalk when her arm slipped off the railing and she fell face first onto the ground. There was no loss of consciousness, visual changes, weakness or numbness. The patient lives alone in an apartment and does not require any assistance with ambulation. Pain is not a prominent complaint but she did report left hip discomfort in the ED. In the ED, the patient was noted to have an abrasion on her nasal bridge, left elbow, bilateral hands and right knee. She was also noted to have a forehead hematoma. In the ED, she authorized several radiographs that had been ordered, but then requested others to not be completed due to her discomfort during positioning for the radiographs. She also stated that she could not safely a mbulate. Due to the incomplete radiographic workup to rule out occult trauma, and due to the inability to ambulate, the patient has been admitted. 08/19/23 Pt is sitting up in the chair she is ready to go home. XR and CT's reviewed. She does have a mild humeral head sublaxation appointment made with ortho Op for f/u. Case management was able to get her a rollator. She is also going to have [facility]. She has done well with PT and ready for d/c. She denies any further concerns at this time. - Vitals & Intake/Output Vital Signs: Vital Signs Temperature 98.6 F 08/19/23 08:00 Pulse Rate 69 08/19/23 08:00 Respiratory Rate 16 08/19/23 08:00 Blood Pressure 156/66 08/19/23 08:00 O2 Sat by Pulse Oximetry 95 08/19/23 08:00 Intake & Output: Intake & Output 08/16/23 08/17/23 08/18/23 08/19/23 11:59 11:59 11:59 11:59 Intake Total 240 740 Balance 240 740 Weight 54.5 kg - Lab Result Diagrams: 08/19/23 04:20 08/19/23 04:20 Lab Results-Last 24 Hrs: Lab Results-Last 24 Hours 08/19/23 08/19/23 Range/Units 04:20 04:20 WBC 5.1 (4.0-10.5) x10^3/uL RBC 3.81 L (4.1-5.4) x10^6/uL Hgb 12.1 (12.0-16.0) g/dL Hct 37.3 (35-47) % MCV 97.9 (78-100) fL MCH 31.8 (26-32) pg MCHC 32.4 (32-36) g/dL RDW 13.4 (11.5-14.0) % Plt Count 123 L (150-450) x10^3/uL MPV 9.6 (7.5-11.0) fL Sodium 136 L (137-145) mmol/L Potassium 3.9 (3.5-5.1) mmol/L Chloride 105 (98-107) mmol/L Carbon Dioxide 26 (22-30) mmol/L Anion Gap 9.0 (5-15) MEQ/L BUN 15 (7-17) mg/dL Creatinine 1.19 H (0.52-1.04) mg/dL Estimated GFR 45.4 ML/MIN Glucose 79 (74-106) mg/dL Calcium 9.0 (8.4-10.2) mg/dL Total Bilirubin 1.00 (0.2-1.3) mg/dL AST 27 (14-36) U/L ALT 12 (0-35) U/L Alkaline Phosphatase 59 (38-126) U/L Serum Total Protein 6.4 (6.3-8.2) g/dL Albumin 3.5 (3.5-5.0) g/dL - Radiology Exams Ordered Rad Exams-Entire Visit: Radiology Procedures Category Date Time Status CERVICAL SPINE WO CONTRAST [CT] Stat Exams 08/17/23 19:44 Completed ELBOW (MINIMUM 3 VIEWS) Stat Exams 08/18/23 08:00 Completed FACIAL BONES WO CONTRAST [CT] Stat Exams 08/18/23 08:00 Completed FEMUR Routine Exams 08/18/23 08:00 Completed FEMUR Stat Exams 08/18/23 08:00 Completed HEAD WITHOUT CONTRAST [CT] Stat Exams 08/17/23 19:44 Completed HUMERUS Stat Exams 08/18/23 08:00 Completed KNEE (1 OR 2 VIEW) Urgent Exams 08/18/23 10:15 Completed PELVIS WITHOUT CONTRAST [CT] Routine Exams 08/17/23 20:25 Completed SHOULDER Stat Exams 08/17/23 19:44 Completed - Procedures and Test Procedures and Tests throughout Hospitalization: Therapy Orders & Screens 08/18/23 02:05 PT Eval & Treat ( Order) ONCE Reason for Eval:: Range of motion, strengthening, balance Diagnosis: Status post fall 08/18/23 02:34 OT Screen per Nursing Assess ONCE Comment: Protocol Order Physician Instructions: Greater than 3 points order OT Admission Screening Reason For Exam: Triggered on Admission Diagnosis: Status post fall Open Wound/Cellutlitis/Pressure Ulcers: Yes Acute Fx/ORIF/Change in wt bearing status: Yes Severe MUSCULOSKELETAL pain: No ADL Dysfunction: Yes Acute CVA w/Hemiparesis/Hemiplegia: No Decreased Functional Mobility/Strength: Yes Sprain/Strain: No Acute Post-op Mobility Dysfunction: No Total Points: 14 PT Screen per Nursing Assess ONCE Comment: Protocol Order Physician Instructions: Greater than 3 points order PT Admission Screenin Reason For Exam: Triggered on Admission Diagnosis: Status post fall Open Wound/Cellutlitis/Pressure Ulcers: Yes Acute Fx/ORIF/Change in wt bearing status: Yes Severe MUSCULOSKELETAL pain: No ADL Dysfunction: Yes Acute CVA w/Hemiparesis/Hemiplegia: No Decreased Functional Mobility/Strength: Yes Sprain/Strain: No Acute Post-op Mobility Dysfunction: No Total Points: 14 08/18/23 03:10 OT Eval and Treat ( Order) ONCE Comment: Physician Instructions: Reason For Exam: Diagnosis: Status post fall Discharge Exam General Appearance: no apparent distress, alert Neurologic Exam: alert, oriented x 3, cooperative, normal mood/affect, nml cerebellar function, sensation nml, No motor deficits Eye Exam: PERRL, EOMI, eyes nml inspection, other (raccon eyes) Ears, Nose, Throat Exam: normal ENT inspection, pharynx normal, moist mucous membranes Neck Exam: normal inspection, non-tender, supple, full range of motion Respiratory Exam: normal breath sounds, lungs clear, No respiratory distress Cardiovascular Exam: regular rate/rhythm, normal heart sounds Gastrointestinal/Abdomen Exam: soft, No tenderness, No mass Pelvic Exam: deferred Rectal Exam: deferred Back Exam: normal inspection, normal range of motion, No CVA tenderness, No vertebral tenderness Extremity Exam: normal inspection, normal range of motion Skin Exam: normal color, warm, dry, other ((abrasion noted on right knee and bilateral hands, nasal bridge, and left elbow), other (forehead hematoma noted)) Wound Assessment: Skin/Wound Assessment Wound/Incision Assessment Start: 08/18/23 02:34 Text: Status: Active Freq: Q6H Protocol: Document 08/19/23 08:00 EK (Rec: 08/19/23 09:33 EK [id number]) Wound/Incision Assessment Left Elbow Wound Assessment Shift Assessment Wound Type Abrasion Wound Stage Non Pressure Wound Drainage Amount None General Appearance Open to air Face Wound Assessment Shift Assessment Wound Stage Non Pressure Wound Drainage Amount None General Appearance Open to air,Clean/Dry Medial Head Wound Assessment Shift Assessment Wound Type Abrasion Wound Stage Non Pressure Wound Drainage Amount None General Appearance Open to air,Clean/Dry Wound Photo Photo Taken No Final Diagnosis/Problem List - Final Discharge Diagnosis/Problem (1) Fall Current Visit: Yes Status: Acute Assessment & Plan: - R knee XR: negative for acute injury - Femur XR : negative for acute injury - Facial bones CT: : Frontal scalp soft tissue swelling/hematoma. CT facial bones negative for fracture. Incidental osteopenia, nasal septal deviation, and degenerative changes. - L elbow XR: negative for acute injury - Pelvis CT: Negative for acute injury - Left shoulder XR: negative for acute injury - CT head: Impression: 1. New left frontal scalp hematoma. No underlying fracture or acute intracranial hemorrhage. 2. Continued nonacute senile brain with again small remote infarct right caudate head/right basal ganglia - CT cervical spine: negative for acute injury Code(s): W19.XXXA - UNSPECIFIED FALL, INITIAL ENCOUNTER (2) Traumatic hematoma of forehead Current Visit: Yes Status: Acute Assessment & Plan: Will plan on holding Plavix for 48 hours, per Dr. Casillas's recommendation to the patient. Code(s): S00.83XA - CONTUSION OF OTHER PART OF HEAD, INITIAL ENCOUNTER (3) Subluxation Current Visit: Yes Status: Acute Assessment & Plan: -XR RAD/HUMERUS: 2 view left humerus demonstrates mild inferior humeral head subluxation. Elsewhere osteopenia and mild AC degenerative changes. No other bony, articular, or soft tissue abnormalities. - Discussed case with Jennifer Nunez NP OK for pt to f/u OP. - Pt has no c/o of pain Code(s): T14.8XXA - OTHER INJURY OF UNSPECIFIED BODY REGION, INITIAL ENCOUNTER (4) Abrasions of multiple sites Current Visit: Yes Status: Acute Assessment & Plan: - Multiple bruises in various stages of healing - skin care Code(s): T07.XXXA - UNSPECIFIED MULTIPLE INJURIES, INITIAL ENCOUNTER - Discharge Discharge Date: 08/19/23 Disposition: Home, Self-Care Condition: Stable Prescriptions: Continue Metoprolol Succinate 50 mg [Toprol Xl 50 MG] 50 mg PO DAILY Enalapril Maleate [Vasotec] 10 mg PO DAILY Clopidogrel Bisulfate [Clopidogrel] 75 mg PO DAILY Esomeprazole Magnesium 40 mg PO DAILY ALPRAZolam [Alprazolam] 0.5 mg PO HS Meloxicam 7.5 mg PO BID PRN PRN Reason: Pain Additional Instructions: [facility] HAS BEEN ARRANGED FOR YOU. THEY WILL CALL YOU TO ARRANGE A TIME TO COME SEE YOU. THEIR PHONE NUMBER IS [phone] IF YOU NEED ANYTHING BEFORE THEY CONTACT YOU. - Follow up with Ortho- avoid throwing or lifting heavy objects for at least 6 weeks Follow up with: CLARICE CASILLAS MD [Primary Care Provider] - 08/25/23 9:45 am JENNIFER - CHANTEL MALIN NP [NON-STAFF PHY W/O PRIVILEGES] - 08/31/23 1:30 pm
[2023-08-19 12:56] VITALS: BP 140/80; TEMP 97.4
== END 2023-08-19 13:07 | disposition home or self-care (01) ==
LOC: ED 19:34 → MED SURG 08-18 01:50
PROVIDERS: ADMIT Internal Medicine; ATTEND Internal Medicine
DX: S00.83XA Contusion of other part of head, initial encounter (principal); W19.XXXA Unspecified fall, initial encounter; S50.312A Abrasion of left elbow, initial encounter; S60.512A Abrasion of left hand, initial encounter; S60.511A Abrasion of right hand, initial encounter; S80.211A Abrasion, right knee, initial encounter; I25.10 Atherosclerotic heart disease of native coronary artery without angina pectoris; E78.5 Hyperlipidemia, unspecified; I10 Essential (primary) hypertension; I25.2 Old myocardial infarction; Z95.0 Presence of cardiac pacemaker; Z86.73 Personal history of transient ischemic attack (TIA), and cerebral infarction without residual deficits; Z79.01 Long term (current) use of anticoagulants; Z79.899 Other long term (current) drug therapy; Z20.828 Contact with and (suspected) exposure to other viral communicable diseases; Z85.3 Personal history of malignant neoplasm of breast
CPT/HCPCS: 36415; 70450; 70486; 72125; 72192; 73030; 73060; 73080; 73552; 73560; 80053; 85027; 97110; 97161; 97165; 97530; 99284; G0378; Q3014; A9270-GY